=== PATIENT | female | born 1985 | race Caucasian/White ===

== ENCOUNTER 2019-01-06 04:10 | Inpatient (IN) | payer MEDICARE, MEDICAID ==
[~2019-01-06] VITALS: Ht 172.7 cm; Wt 82.6 kg
[~2019-01-06 04:10] MED LIST: CHOL100018 PO; OLAN10TA3 PO; PERID15L MM
[2019-01-06] MEDS ORDERED: LORazepam 2 MG TABLET PO PRN (06:00)
[2019-01-06] MEDS ORDERED: ZOLPIDEM TARTRATE 10 MG TABLET PO PRN (06:00)
[2019-01-06] MEDS ORDERED: QUEtiapine FUMARATE 100 MG TABLET PO PRN (06:00)
[2019-01-06 09:16] VITALS: BP 112/74
[2019-01-06] MEDS: OLANZapine 5 MG TABLET PO SCH ×3 (09:45→21:00)
[2019-01-06] MEDS ORDERED: LOPERAMIDE HCL 2 MG CAPSULE PO PRN (15:45)
[2019-01-06] MEDS ORDERED: MAGNESIUM HYDROXIDE SUSPENSION 30 ML UDCUP PO PRN (15:45)
[2019-01-06] MEDS ORDERED: MAG HYDROX/AL HYDROX/SIMETH ES 30 ML SUSPENSION UDCUP PO PRN (15:45)
[2019-01-06] MEDS ORDERED: ALBUTEROL SULFATE HFA 90 MCG/PUFF 8 GM INHALER IH PRN (15:45)
[2019-01-06] MEDS ORDERED: ACETAMINOPHEN 325 MG TABLET PO PRN (15:45)
[2019-01-06] MEDS ORDERED: ONDANSETRON HCL 4 MG TABLET PO PRN (15:45)
[2019-01-06] MEDS ORDERED: PETROLATUM,WHITE 28 GM JELLY TP PRN (15:45)
[2019-01-06] MEDS ORDERED: GuaiFENesin/D-METHORPHAN [SUGAR-FREE] 200-20MG/10 ML SYRUP UDCUP PO PRN (15:45)
[2019-01-06] MEDS ORDERED: DOCUSATE SODIUM 100 MG CAPSULE PO PRN (15:45)
[2019-01-06] MEDS ORDERED: IBUPROFEN 400 MG TABLET PO PRN (15:45)
[2019-01-06] MEDS ORDERED: NICOTINE 14 MG/24 HOUR PATCH TD PRN (15:45)
[2019-01-06] MEDS ORDERED: CloNIDine HCL 0.1 MG TABLET PO PRN (15:45)
[2019-01-06 16:06] VITALS: BP 124/81
[2019-01-06] MEDS: DIVALPROEX SODIUM 250 MG DR TABLET PO SCH (21:30)
[2019-01-06] MEDS: RisperiDONE 2 MG TABLET PO SCH (21:40)
[2019-01-07 05:34] VITALS: BP 120/77
[2019-01-07 08:14] VITALS: BP 122/69
[2019-01-07] MEDS ORDERED: DIPH50 PO (08:23)
[2019-01-07] MEDS ORDERED: RISP2 PO (08:23)
[2019-01-07] MEDS ORDERED: ARIP400S3 IM (08:23)
[2019-01-07] MEDS ORDERED: DIVA125T32 PO (08:23)
[2019-01-07] MEDS ORDERED: ARIP5TAB8 PO (08:23)
[2019-01-07] MEDS: RisperiDONE 2 MG TABLET PO SCH ×2 (08:54→21:00)
[2019-01-07] MEDS: DIVALPROEX SODIUM 250 MG DR TABLET PO SCH ×2 (08:58→21:00)
[2019-01-07] MEDS: OLANZapine 5 MG TABLET PO SCH ×2 (08:59→21:00)
[2019-01-07] MEDS ORDERED: ARIPiprazole ER SUSPENSION 400 MG PRE-FILLED DUAL CHAMBER SYRINGE IM SCH (13:00)
[2019-01-07 16:25] VITALS: BP 126/71
[2019-01-08 05:38] VITALS: BP 118/74
[2019-01-08] MEDS: RisperiDONE 2 MG TABLET PO SCH ×2 (08:37→19:00)
[2019-01-08] MEDS: DIVALPROEX SODIUM 250 MG DR TABLET PO SCH (08:37)
[2019-01-08] MEDS: OLANZapine 5 MG TABLET PO SCH (08:37)
[2019-01-08 16:16] VITALS: BP 115/76
[2019-01-08] MEDS ORDERED: ARIPiprazole ER SUSPENSION 400 MG VIAL IM SCH (18:45)
[2019-01-08] MEDS ORDERED: RISP2 PO (19:12)
== END 2019-01-08 19:30 | disposition home or self-care (01) | DRG 885 ==
LOC: B3A 04:10
PROVIDERS: ADMIT Psychiatry & Neurology Child & Adolescent Psychiatry; ATTEND Psychiatry & Neurology Child & Adolescent Psychiatry
DX: F20.0 Paranoid schizophrenia (principal); M54.5 Low back pain; E83.51 Hypocalcemia; R10.13 Epigastric pain; F41.9 Anxiety disorder, unspecified
CPT/HCPCS: J0401

== ENCOUNTER 2019-12-06 22:33 | Emergency (ER) | payer OTHER ==
[~2019-12-06] VITALS: Ht 172.7 cm; Wt 78.9 kg
[~2019-12-06 22:33] MED LIST changes: -CHOL100018 PO; -OLAN10TA3 PO; -PERID15L MM; +RISP2TAB23 PO
[2019-12-06] MEDS ORDERED: RISP4TAB73 PO (22:55)
[2019-12-06] MEDS ORDERED: LORA-1000 PO (22:55)
[2019-12-06] MEDS ORDERED: DIVA-80 PO (22:55)
[2019-12-07 08:43] LABS: BASOPHILS % (AUTO) 0.7 % (0.0-2.0); HEMATOCRIT 39.6 % (36-46); HEMOGLOBIN 13.4 g/dL (12.0-16.0); LYMPHOCYTES # (AUTO) 2.5 K/uL (1.0-4.8); LYMPHOCYTES % (AUTO) 26.1 % (22.0-44.0); MEAN CORPUSCULAR HEMOGLOBIN 31.2 pg (26.0-34.0); MEAN CORPUSCULAR HGB CONC 33.8 G/dL (31.0-37.0); MEAN CORPUSCULAR VOLUME 92 fL (80-100); MONOCYTES # (AUTO) 0.9 K/uL (0.1-1.0); MONOCYTES % (AUTO) 9.7 % (2.0-9.0); NEUTROPHILS # (AUTO) 5.9 K/uL (1.8-7.7); NEUTROPHILS % (AUTO) 62.5 % (40.0-70.0); PLATELET COUNT (AUTO) 262 K/uL (150-450); RED CELL DISTRIBUTION WIDTH 12.7 % (11.5-14.5)
[2019-12-07 08:55] LABS: ANION GAP 10 mmol/L (8-16); CALCIUM, TOTAL 8.7 mg/dL (8.8-10.5); CARBON DIOXIDE 25 mmol/L (22-29); CHLORIDE 101 mmol/L (98-107); CREATININE 0.71 mg/dL (0.60-1.30); GLOMERULAR FILTR. RATE CALC > 60 mL/min (>60); GLUCOSE,RANDOM 106 mg/dL (70-110); SODIUM SERUM 136 mmol/L (136-145); UREA NITROGEN, BLOOD 10 mg/dL (7-18)
[2019-12-07 09:06] LABS: ALANINE AMINOTRANSFERASE 25 U/L (12-78); ALBUMIN 3.9 g/dL (3.4-5.0); ALKALINE PHOSPHATASE 80 U/L (46-116); ASPARTATE AMINOTRANSFERASE 10 U/L (15-37); BILIRUBIN,TOTAL 0.5 mg/dL (0.1-1.0); HCG,QUANTITATIVE 1 mIU/mL (0-6); TOTAL PROTEIN, SERUM 7.4 g/dL (6.4-8.2)
[2019-12-07] MEDS: RisperiDONE 1 MG TABLET PO ONE ×2 (11:27→11:54)
[2019-12-07] MEDS: LORazepam 1 MG TABLET PO ONE ×2 (11:28→11:54)
[2019-12-07] MEDS: DIVALPROEX SODIUM 500 MG ER TABLET PO ONE ×2 (11:28→11:54)
[2019-12-07 14:45] VITALS: BP 135/80
== END 2019-12-07 16:10 | disposition short-term general hospital (02) ==
LOC: EMS 22:33
DX: F25.9 Schizoaffective disorder, unspecified (principal); F32.9 Major depressive disorder, single episode, unspecified; Z20.828 Contact with and (suspected) exposure to other viral communicable diseases; Z88.8 Allergy status to other drugs, medicaments and biological substances
CPT/HCPCS: 80053; 84702; 85025; 87426; 99291; G0480